=== PATIENT | male | born 1960 | race Caucasian/White ===

== ENCOUNTER 2025-01-06 00:35 | Day surgery (SDC) | payer BC, SELFPAY ==
[2024-12-17 10:15] VITALS: BMI 30.2
--- OUTSIDE RECORDS SUMMARY | 2025-01-06 00:38 | XMS_ITS | Clinical Summary ---
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 Pulse 68 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 Temperature - - Respiratory Rate - - Oxygen Saturation - - Inhaled Oxygen Concentration - - Weight 110.7 kg (244 lb) 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 Height 185.4 cm (6' 1) 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 Body Mass Index 32.19 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 Plan of Treatment Health Maintenance Due Date Last Done Comments Colorectal Cancer Screening Colonoscopy (10 Years) 1962 Annual Physical 1965 Hepatitis C 1980 DTaP, Tdap and Td Vaccines ( 1 - Tdap) 1981 Pneumococcal Vaccine: 50+ Ye ars (1 of 1 - PCV) 2012 Zoster Vaccines (1 of 2) 2012 COVID-19 Vaccine ( - 2023-2 5 season) 2024 RSV Immunization or 60+ Years (1 - 1-dose 75+ series) 2037 Meningococcal B Vaccine Aged Out No l onger eligible based on patient's age to complete this topic Meningococcal Vaccine Aged Out No mary braeden eligible based on patient's age to complete this topic RSV Immunizations Under 20 Months Aged Out No longer eligible based on patient's age to complete this topic
[2025-01-06 11:45] VITALS: BP 144/98; PULSE 75; RESP 16; TEMP 36.1; O2SAT 97
[2025-01-06] MEDS: LACTATED RINGERS 1,000 ML 150 ML IV CONT (11:57)
--- NOTE | 2025-01-06 12:17 | P.PNAN_ITS ---
Anes - Initial Pre Proc Eval Procedure: Operation Date: 01/06/25 13:00 Proposed Procedures p Esophagogastroduodenoscopy & Colonoscopy - Benjamin Haley MD Date/Time: 01/06/25 12:17 Surgeon: Benjamin Haley MD Pre Op Diagnosis: Dysphagia, unspecified, Screening Patient Data Age: 64 Gender: M Height: 1.88 m Weight: 113.4 kg Last Vital Signs Temp 97 F L 01/06/25 11:45 Pulse 75 01/06/25 11:45 Resp 16 01/06/25 11:45 BP 144/98 H 01/06/25 11:45 Pulse Ox 97 01/06/25 11:45 O2 Del Method Room Air 01/06/25 11:45 Allergies Allergy/AdvReac Type Severity Reaction Status Date / Time cabrera Allergy Severe Difficulty Verified 01/06/25 11:43 Swallowing Home Medications ?Medication ?Instructions ?Recorded ?Confirmed ?Type allopurinol 300 mg tablet 300 mg PO DAILY 12/17/24 01/06/25 History tadalafil 5 mg tablet 5 mg PO PRN PRN sexual activity 12/17/24 12/17/24 History Patient hx anesthesia problems: none Family hx anesthesia problems: none Results Review: All pre-operative results and documents have been reviewed as part of the pre- operative evaluation. [facility] Social History Social History Smoking status: Never smoker Alcohol intake: current Drinks per week: 21 Substance use type: does not use Living arrangements: with family Spiritual care concerns: No Anes - Eval Final PreProcedure Day of Procedure 01/06/25 12:17 Patient weight: obese Lungs: normal air movement Airway: Mallampati scale class II Neurological: alert and oriented Last oral intake: >/= 8 hours ASA classification: II Emergent: no Anesthetic plan: proceed Anesthesia type and monitoring: general GIVS and standard monitoring Results Review: All pre-operative results and documents have been reviewed as part of the pre- operative evaluation. Obesity, BMI 32. Active w riding bike approx 100 miles/week, no cp or sob. Informed Consent: The patient's anesthetic plan and its attendant risks and benefits were discussed with the patient/family/POA. Questions were solicited and answers provided to the satisfaction of the patient/family/POA.
--- NOTE | 2025-01-06 13:02 | PM.HPGS ---
History of Present Illness History of Present Illness Consent: Risks, benefits, and alternatives have been discussed and questions answered. Patient agrees to proceed with procedure. Chief complaint: Dysphagia, unspecified, Screening Narrative: Jose Manuel Patel is a 64 year old male with intermittent dysphagia to solids, also screening colonoscopy- last one 10 years ago Review of Systems Review of Systems: All systems reviewed & are unremarkable except as noted in HPI and below PMFSH Past Medical History Medical History (Updated 01/06/25 @ 13:02 by Benjamin Haley MD) Dysphagia Colon cancer screening Social History Social History Smoking status: Never smoker Alcohol intake: current Drinks per week: 21 Substance use type: does not use Living arrangements: with family Spiritual care concerns: No Meds Home Medications and Allergies Home Medications ?Medication ?Instructions ?Recorded ?Confirmed ?Type allopurinol 300 mg tablet 300 mg PO DAILY 12/17/24 01/06/25 History tadalafil 5 mg tablet 5 mg PO PRN PRN sexual activity 12/17/24 12/17/24 History Allergies Allergy/AdvReac Type Severity Reaction Status Date / Time cabrera Allergy Severe Difficulty Verified 01/06/25 11:43 Swallowing Vital Signs Vital Signs - 24 hr 01/06/25 11:45 Temperature 97 F L Pulse Rate 75 Respiratory Rate 16 Blood Pressure 144/98 H Pulse Oximetry 97 Oxygen Delivery Room Air Exam Const: General: comfortable and no acute distress HENMT: Face/Nose/Sinus: Normal nares present Eyes: General: appearance normal, both eyes and all related structures Neck: Neck: no JVD Resp: Auscultation: clear to auscultation bilaterally Cardio: Rate: regular rate Rhythm: regular rhythm GI: Inspection: non-distended GI Palp: Yes Soft to palpation Skin: General skin exam: normal color Neuro: Speech: normal speech Extrem: General: normal to inspection Psych: Mental Status: mental status grossly normal Assessment and Plan Assessment and plan (1) Colon cancer screening: Code(s): Z12.11 - Encounter for screening for malignant neoplasm of colon Status: Acute Assessment and Plan: colonoscopy (2) Dysphagia: Code(s): R13.10 - Dysphagia, unspecified Status: Acute Assessment and Plan: egd
--- NOTE | 2025-01-06 13:21 | SUR.OPER ---
EGD end 1316 COLONOSCOPY START 1321
--- NOTE | 2025-01-06 13:31 | S_PTH ---
PATIENT: Jose Manuel Patel LOC: [facility]#:[id number] AGE/SX: 64/M ROOM: RE01/06/[address]: Benjamin Haley MD : 1960 BED: DIS: 01/06/2025 SPEC #: [id number] RECD: 01/06/25 14:43 STATUS: MILAGROS REScar #: [id number] DAVID: 01/06/25 13:[address]: Benjamin Haley DEPT: [facility] Surgical RECD BY: Dottie Pino ENTERED: 01/06/25 14:44 SP TYPE: Surgical OTHR DR: Christian LucianoMD Tissues: A - Gastric Biopsy B - Esophageal Biopsy C - Esophageal Biopsy D - Colon Polypectomy Procedures: Hematoxylin and Eosin Stain Gross and Microscopic Level 4
[2025-01-06 13:35] VITALS: BP 107/60; PULSE 71; RESP 19; O2SAT 98
[2025-01-06 13:45] VITALS: BP 117/64; PULSE 57; RESP 18; O2SAT 100
[2025-01-06 13:55] VITALS: BP 142/86; PULSE 72; RESP 19; O2SAT 97
== END 2025-01-06 14:04 | disposition home or self-care (01) ==
PROVIDERS: PCP Family Medicine; Referring Provider Family Medicine; Visit Provider Internal Medicine Gastroenterology
PROC: 0DJ08ZZ Inspection of Upper Intestinal Tract, Via Natural or Artificial Opening Endoscopic (ICD-10-PCS; CPT 45378; principal; 2025-01-06 13:00)
DX: Z12.11 Encounter for screening for malignant neoplasm of colon (principal); D12.2 Benign neoplasm of ascending colon; K22.2 Esophageal obstruction; K21.00 Gastro-esophageal reflux disease with esophagitis, without bleeding; K29.50 Unspecified chronic gastritis without bleeding; E66.9 Obesity, unspecified; Z68.32 Body mass index [BMI] 32.0-32.9, adult
CPT/HCPCS: 43239; 43249; 45385; 88305; C1726; J2003; J2704; J7120